=== PATIENT | female | born 1980 | race Hispanic/Latino ===

== ENCOUNTER 2022-03-28 14:10 | Emergency (ER) | payer OTHER ==
[~2022-03-28] VITALS: Ht 160 cm; Wt 63.5 kg
[~2022-03-28 14:10] MED LIST: CHOL500045 PO; NERA40TA PO; VITA1CAP85 PO
[2022-03-28 14:16] VITALS: BP 132/78
== END 2022-03-28 15:23 | disposition home or self-care (01) ==
LOC: EDH 14:10
DX: Z48.01 Encounter for change or removal of surgical wound dressing (principal); Z79.899 Other long term (current) drug therapy; Z90.89 Acquired absence of other organs; Z98.890 Other specified postprocedural states

== ENCOUNTER 2022-08-25 08:00 | Day surgery (SDC) | payer OTHER ==
[2022-08-19 10:56] LABS: BASOPHILS % (AUTO) 0.6 % (0.0-5.0); EOSINOPHILS % (AUTO) 1.8 % (0.0-8.0); HEMATOCRIT 37.9 % (36-48); LYMPHOCYTES % (AUTO) 16.6 % (21.0-51.0); MEAN CORPUSCULAR HEMOGLOBIN 31.2 pg (27.0-33.0); MEAN CORPUSCULAR HGB CONC 33.8 g/dL (32.0-36.0); MEAN CORPUSCULAR VOLUME 92.4 fL (79-99); MONOCYTES % (AUTO) 8.5 % (3.0-13.0); NEUTROPHILS % (AUTO) 72.1 % (40.0-77.0); PLATELET COUNT (AUTO) 206 K/uL (130-400); RED CELL DISTRIBUTION WIDTH 13.2 % (11.0-15.5); WHITE BLOOD COUNT (AUTO) 6.9 K/uL (4.8-10.8)
[2022-08-19 11:01] LABS: APPEARANCE,URINE CLEAR (CLEAR); BILIRUBIN,URINE NEGATIVE (NEGATIVE); COLOR,URINE COLORLESS (YELLOW); GLUCOSE, URINE (UA) NEGATIVE (NEGATIVE); KETONES,URINE NEGATIVE (NEGATIVE); LEUKOCYTE ESTERASE ,URINE NEGATIVE Leu/uL (NEGATIVE); NITRATE,URINE NEGATIVE (NEGATIVE); OCCULT BLOOD,URINE NEGATIVE (NEGATIVE); PROTEIN,URINE NEGATIVE (NEGATIVE); UROBILINOGEN,URINE 0.2 mg/dL (0.2-1.0)
[2022-08-19 11:03] LABS: CREATININE 0.6 mg/dL (0.5-1.5); POTASSIUM 4.4 mmol/L (3.5-5.1)
[2022-08-19 12:09] LABS: INR 0.93 (0.85-1.15); PROTHROMBIN TIME 9.8 SEC (9.6-11.6)
[2022-08-19 12:10] LABS: PARTIAL THROMBOPLASTIN TIME 26.2 SEC (26.3-35.5)
[2022-08-24 09:02] VITALS: BP 125/72
[2022-08-25] VITALS (18 sets, daily range): BP systolic 108–132; BP diastolic 64–88
[~2022-08-25] VITALS: Ht 165.1 cm; Wt 67.0 kg
[~2022-08-25 08:00] MED LIST changes: +ASCO500T20 PO; -CHOL500045 PO; +CHOL500051 PO
[2022-08-25] MEDS ORDERED: LACTATED RINGERS 1000ML 1,000 ML IV ONE (08:22)
[2022-08-25] MEDS ORDERED: CEFAZOLIN SODIUM 1 GM VIAL ONE ×3 (08:40→10:08)
[2022-08-25] MEDS ORDERED: GENTAMICIN SULFATE 80 MG/2 ML VIAL ONE ×4 (08:41)
[2022-08-25] MEDS ORDERED: LIDOCAINE 1%-EPI 1:100,000 20 ML VIAL IJ SCH (10:30)
[2022-08-25] MEDS: CEFAZOLIN SODIUM 1 GM VIAL IVPB SCH ×2 (10:30→11:18)
[2022-08-25] MEDS ORDERED: SUCCINYLCHOLINE CHLORIDE 20 MG/ML 10 ML VIAL ONE (10:43)
[2022-08-25] MEDS ORDERED: LIDOCAINE PF 100MG/5ML (2%) SYRINGE 5ML ONE (10:43)
[2022-08-25] MEDS ORDERED: FENTANYL CITRATE PF 50 MCG/1 ML 2ML VIAL ONE (10:44)
[2022-08-25] MEDS ORDERED: MIDAZOLAM HCL 1 MG/ML 2ML VIAL ONE (10:44)
[2022-08-25] MEDS ORDERED: PROPOFOL 10 MG/ML 20ML VIAL IV ONE (10:44)
[2022-08-25] MEDS ORDERED: KETOROLAC 30MG VIAL (30MG/ML) ONE (10:45)
[2022-08-25] MEDS ORDERED: MEPERIDINE-PF 25 MG/ML SYG ONE (12:52)
[2022-08-25] MEDS ORDERED: ONDANSETRON 4MG INJ ONE (12:52)
== END 2022-08-25 14:45 | disposition home or self-care (01) ==
LOC: DAH 08:00
PROVIDERS: ATTEND Plastic Surgery
DX: R92.8 Other abnormal and inconclusive findings on diagnostic imaging of breast (principal); Z20.822 Contact with and (suspected) exposure to COVID-19; N64.89 Other specified disorders of breast; Z85.3 Personal history of malignant neoplasm of breast; Z79.01 Long term (current) use of anticoagulants; Z90.49 Acquired absence of other specified parts of digestive tract; Z80.3 Family history of malignant neoplasm of breast; Z98.890 Other specified postprocedural states; Z98.891 History of uterine scar from previous surgery; Z79.899 Other long term (current) drug therapy
CPT/HCPCS: 80048; 84703; 85025; 85610; 85730; 87426; 81003; 36415; 93005; 11970; 81025; A6260; A4663; J7030; A4606; A4649 ×2; J7120; J3010; J0690 ×3; J0330; J2001; J1580 ×4; J2250; J2704; J2405; J1885; J2175; A6446; C1789; A4215; A4223; A4222; A4221; A4600; J3490